=== PATIENT | female | born 1990 | race Native Hawaiian/Other Pacific Islander ===

== ENCOUNTER 2017-05-11 10:33 | Emergency (ER) | payer MEDICAID, OTHER ==
[2017-05-11 10:39] VITALS: BP 121/81; PULSE 81; RESP 20; TEMP 98; O2SAT 98
[2017-05-11] MEDS ORDERED: Tmp-Smz 800 mg-160 mg DS Tab PO STA (10:51)
--- NOTE | 2017-05-11 10:54 | C.PDOC ---
History Of Present Illness 27 y/o F c no PMHx p/w hand wound that she noticed yesterday morning. Patient awoke with wound, probable bug bite to thenar area of R hand. Over the last 2 days, the area has become more swollen with erythema extending up the forearm. She denies fever, chills, limited ROM. Time Seen by Provider: 05/11/17 10:40 Chief Complaint (Nursing): Allergic Reaction Past Medical History Vital Signs: Last Vital Signs Temp 98 F 05/11/17 10:36 Pulse 81 05/11/17 10:36 Resp 20 05/11/17 10:36 BP 121/81 05/11/17 10:36 Pulse Ox 98 05/11/17 10:36 Family History: States: No Known Family Hx - Social History Hx Alcohol Use: Yes Hx Substance Use: No - Immunization History Hx Tetanus Toxoid Vaccination: No Hx Influenza Vaccination: No Hx Pneumococcal Vaccination: No Review Of Systems Except As Marked, All Systems Reviewed And Found Negative. Constitutional: Negative for: Fever Respiratory: Negative for: Shortness of Breath Physical Exam - Physical Exam Appears: Well Skin: Rash (erythema extending up flexor forearm from hand wound) Head: Normacephalic Respiratory: No Accessory Muscle Use Pulses: Right Radial: Normal Neurological/Psych: Normal Motor Gait: Steady ED Course And Treatment O2 Sat by Pulse Oximetry: 98 Medical Decision Making Medical Decision Making: Initiated antibiotics, warm compresses, elevation, watch for worsening infection or drainage requiring I&D. Disposition - Disposition Disposition: HOME/ ROUTINE Disposition Time: 10:54 Condition: STABLE Prescriptions: Cephalexin [cephalexin] 500 mg PO TID #63 cap Sulfamethoxazole/Trimethoprim [Bactrim DS 800 mg-160 mg] 1 tab PO BID #42 tab Instructions: Cellulitis (ED) Forms: [employer] ([place]) - Clinical Impression Clinical Impression: Infected bite wound, Cellulitis
[2017-05-11] MEDS ORDERED: Tmp-Smz 800 mg-160 mg DS Tab ONE (11:02)
== END 2017-05-11 11:18 | disposition home or self-care (01) ==
LOC: C.ER 10:33 → MERGE 10:33 → C.ER 11:18
DX: S60.561A Insect bite (nonvenomous) of right hand, initial encounter (principal); L03.113 Cellulitis of right upper limb; W57.XXXA Bitten or stung by nonvenomous insect and other nonvenomous arthropods, initial encounter; Y92.009 Unspecified place in unspecified non-institutional (private) residence as the place of occurrence of the external cause